=== PATIENT | female | born 1995 | race Caucasian/White ===

== ENCOUNTER 2018-04-23 12:20 | Emergency (ER) | payer BC ==
[2018-04-23 12:24] VITALS: BP 107/66
[2018-04-23] MEDS ORDERED: ACETAMINOPHEN 325 MG TAB PO ONE (13:00)
[2018-04-23] MEDS ORDERED: ONDANSETRON DISINTEGRATING 4 MG TAB PO ONE (13:00)
--- NOTE | 2018-04-23 13:00 | EDPHY ---
H & P Time Seen by Provider: 04/23/18 12:45 HPI/ROS: CHIEF COMPLAINT: Headache and nausea HISTORY OF PRESENT ILLNESS: Patient stood up after plugging in her phone last night and hit the top of her head on a shelf at 8:30 p.m.. She did not lose consciousness or have a seizure, she did not have neck or back pain. She started having headache at the point where she hit her head, associated with some nausea and a single episode of vomiting. She threw up last night once but has not had vomiting since, does still have nausea and headache. Symptoms moderate to mild. Not associated with visual symptoms or confusion. Worse with looking at her phone. REVIEW OF SYSTEMS: Eye: No double vision ENT: no sore throat Cardiac: no chest pain or syncope Pulmonary: no cough or SOB Abdomen: No abdominal pain or diarrhea Musculoskeletal: no back pain or neck pain Skin: No laceration Neuro: HPI Constitutional: no fever : no urinary symptoms A comprehensive 10 point review of systems is otherwise negative aside from elements mentioned in the history of present illness. PAST MEDICAL HISTORY: Depression and anxiety on Prozac and Wellbutrin Social history: No local PCP now. General Appearance: Alert and conversant, cooperative. Eyes: No scleral icterus. Pupils equal reactive extraocular motion intact. ENT, Mouth: Normal mucous membranes. No hemotympanum. Respiratory: Normal respiratory effort, breath sounds equal, lungs are clear to auscultation. Cardiovascular: Regular rate and rhythm. Gastrointestinal: Abdomen is soft and non tender. Neurological: Alert, face symmetric, normal motor and sensory in extremities. Speech fluent, no pronator drift, normal [id number] bilaterally. Skin: Warm and dry, no rashes. Musculoskeletal: No neck or back tenderness. Psychiatric: Not agitated. Emergency Department course/MDM: Likely mild concussion, does not have red flags to suggest she is at high risk for subdural or epidural, traumatic subarachnoid, skull fracture. Symptomatic treatment and warned about avoiding contact sports until symptoms have resolved. Smoking Status: Never smoked Constitutional: Initial Vital Signs Temperature (C) 36.7 C 04/23/18 12:23 Heart Rate 78 04/23/18 12:23 Respiratory Rate 18 04/23/18 12:23 Blood Pressure 107/66 04/23/18 12:23 O2 Sat (%) 97 04/23/18 12:23 O2 Delivery Mode Room Air Allergies/Adverse Reactions: bacitracin Allergy (Verified 04/23/18 12:22) Penicillins Allergy (Verified 04/23/18 12:22) Home Medications: Medication Instructions Recorded Ondansetron Odt [Zofran Odt 4 mg 4 mg PO Q4 #12 tab 08/25/14 (RX)] Prozac 10 MG (RX) 08/25/14 Wellbutrin Sr 08/25/14 Ondansetron Odt [Zofran Odt] 4 mg PO Q4PRN #6 tab 04/23/18 MDM/Departure - MDM Medications Given: Discontinued Medications Acetaminophen (Tylenol) 650 mg PO EDNOW ONE Stop: 04/23/18 13:01 Last Admin: 04/23/18 13:09 Dose: 650 mg Ondansetron HCl (Zofran Odt) 4 mg PO EDNOW ONE Stop: 04/23/18 13:01 Last Admin: 04/23/18 13:09 Dose: 4 mg - Depart Disposition: Home, Routine, Self-Care Clinical Impression: Head injury Qualifiers: Encounter type: initial encounter Qualified Code(s): S09.90XA - Unspecified injury of head, initial encounter Concussion Qualifiers: Encounter type: initial encounter Loss of consciousness presence/duration: without LOC Qualified Code(s): S06.0X0A - Concussion without loss of consciousness, initial encounter Condition: Good Instructions: Head Injury (ED) Additional Instructions: Primary care referral given. Tylenol or Motrin as discussed for pain. No potential contact sports or activities until symptoms have completely resolved. Stand Alone Forms: School Excuse Prescriptions: Ondansetron Odt [Zofran Odt] 4 mg PO Q4PRN #6 tab Referrals: Ciara Lee MD [[facility] Primary Care Provider] - As per Instructions
== END 2018-04-23 13:11 | disposition home or self-care (01) ==
DX: S06.0X0A Concussion without loss of consciousness, initial encounter (principal); W22.09XA Striking against other stationary object, initial encounter; F32.9 Major depressive disorder, single episode, unspecified; F41.9 Anxiety disorder, unspecified; Z88.0 Allergy status to penicillin

== ENCOUNTER 2018-07-21 11:54 | Emergency (ER) | payer BC ==
--- NOTE | 2018-07-21 11:58 | EDPHY ---
H & P Time Seen by Provider: 07/21/18 11:57 HPI/ROS: CHIEF COMPLAINT: Headache, neck pain HISTORY OF PRESENT ILLNESS: Patient presents the ED with headache and neck pain that occurred is result of a fall skiing yesterday. The patient denies loss of consciousness. She was helmeted. She complains of a mild frontal headache and posterior cervical musculature pain primarily in the area of her trapezius. Patient denies any chest pain, lower back pain, extremity trauma, numbness, weakness or other acute complaints. The patient does have a prior history of concussion. REVIEW OF SYSTEMS: A comprehensive 10 point review of systems is otherwise negative aside from elements mentioned in the history of present illness. Source: Patient Exam Limitations: No limitations - Medical/Surgical History Hx Asthma: No Hx Chronic Respiratory Disease: No Hx Diabetes: No Hx Cardiac Disease: No Hx Renal Disease: No Hx Cirrhosis: No Hx Alcoholism: No Hx HIV/AIDS: No Hx Splenectomy or Spleen Trauma: No Other PMH: asthma, food allergies , depression - Social History Smoking Status: Never smoked - Physical Exam Exam: General Appearance: Alert, no distress Head: Atraumatic Eyes: Pupils equal, round, reactive ENT, Mouth: No hemotympanum, no oral trauma Neck: Tenderness to palpation bilateral trapezius muscles, no midline tenderness to palpation appreciated Respiratory: No chest wall tender, no subcutaneous air, lungs clear bilaterally Cardiovascular: Regular rate and rhythm Abdomen: Abdomen is soft and nontender, pelvis stable Skin: No lacerations, No abrasion Back: No midline T/L/S pain Extremities: Nontender, full range of motion Neurological: A&Ox3, normal motor function, normal sensory exam Constitutional: Initial Vital Signs Temperature (C) 36.5 C 07/21/18 11:56 Heart Rate 89 07/21/18 11:56 Respiratory Rate 18 07/21/18 11:56 Blood Pressure 124/84 H 07/21/18 11:56 O2 Sat (%) 95 07/21/18 11:56 Allergies/Adverse Reactions: bacitracin Allergy (Verified 07/21/18 11:59) Penicillins Allergy (Verified 07/21/18 11:59) Home Medications: Medication Instructions Recorded Ondansetron Odt [Zofran Odt 4 mg 4 mg PO Q4 #12 tab 08/25/14 (RX)] Prozac 10 MG (RX) 08/25/14 Wellbutrin Sr 08/25/14 Ondansetron Odt [Zofran Odt] 4 mg PO Q4PRN #6 tab 04/23/18 Medical Decision Making ED Course/Re-evaluation: Patient presents to the ED with symptoms consistent with a mild concussion. I do not feel that she has findings which would be consistent with intracranial hemorrhage skull fracture. I do not feel that a CT scan of the brain is indicated. Additionally I have cleared the patient's neck via nexus criteria. Patient will be discharged home with customary concussion and cervical sprain aftercare instructions. Departure - Departure Disposition: Home, Routine, Self-Care Clinical Impression: Concussion Qualifiers: Encounter type: initial encounter Loss of consciousness presence/duration: without LOC Qualified Code(s): S06.0X0A - Concussion without loss of consciousness, initial encounter Cervical strain, acute Qualifiers: Encounter type: initial encounter Qualified Code(s): S16.1XXA - Strain of muscle, fascia and tendon at neck level, initial encounter Condition: Good Instructions: Concussion (ED), Cervical Strain (DC) Additional Instructions: 1. Concussion aftercare as directed. 2. Tylenol and ibuprofen as needed for pain Stand Alone Forms: School Excuse
[2018-07-21 11:59] VITALS: BP 124/84
== END 2018-07-21 12:30 | disposition home or self-care (01) ==
DX: S06.0X0A Concussion without loss of consciousness, initial encounter (principal); S16.1XXA Strain of muscle, fascia and tendon at neck level, initial encounter; V00.321A Fall from snow-skis, initial encounter; Y93.23 Activity, snow (alpine) (downhill) skiing, snowboarding, sledding, tobogganing and snow tubing; Y92.828 Other wilderness area as the place of occurrence of the external cause; Y99.8 Other external cause status